=== PATIENT | male | born 1970 | race Caucasian/White ===

== ENCOUNTER 2021-02-27 15:44 | Emergency (ER) | payer MEDICAID ==
[~2021-02-27] VITALS: Ht 160 cm; Wt 84.0 kg
[2021-02-27 16:03] VITALS: BP 147/88
== END 2021-02-27 16:47 | disposition home or self-care (01) ==
LOC: ER 15:44
DX: Z48.00 Encounter for change or removal of nonsurgical wound dressing (principal)
CPT/HCPCS: 99281

== ENCOUNTER 2021-03-03 19:38 | Emergency (ER) | payer MEDICAID ==
[~2021-03-03] VITALS: Ht 160 cm; Wt 78.6 kg
[2021-03-03 20:09] VITALS: BP 144/91
== END 2021-03-03 23:33 | disposition left against medical advice (07) ==
LOC: ER 19:38
DX: Z53.21 Procedure and treatment not carried out due to patient leaving prior to being seen by health care provider (principal)

== ENCOUNTER 2021-03-04 05:31 | Emergency (ER) | payer MEDICAID ==
[~2021-03-04] VITALS: Ht 160 cm; Wt 78.6 kg
[2021-03-04] MEDS ORDERED: TETANUS, DIPHTHERIA, PERTUSSIS VAC/PF 0.5ML (>7YR OLD) IM ONE (07:15)
[2021-03-04 08:47] VITALS: BP 153/81
== END 2021-03-04 08:48 | disposition home or self-care (01) ==
LOC: ER 05:31
DX: Z48.02 Encounter for removal of sutures (principal); Z23 Encounter for immunization; I10 Essential (primary) hypertension
CPT/HCPCS: 90471; 90715; 99283; Z7610